=== PATIENT | male | born 1950 | race Caucasian/White ===

== ENCOUNTER 2017-08-17 11:57 | Day surgery (SDC) | payer MEDICARE ==
[~2017-08-17] VITALS: Ht 167.6 cm; Wt 77.6 kg
[2017-08-17] MEDS ORDERED: MELO7.5 PO (12:19)
[2017-08-17] MEDS ORDERED: PARO20 PO (12:20)
[2017-08-17] MEDS ORDERED: LOSA50 PO (12:23)
[2017-08-17] MEDS ORDERED: HYDCHL25 PO (12:24)
== END 2017-08-17 16:50 | disposition home or self-care (01) ==
LOC: ORSCSDS 11:57
PROVIDERS: Orthopaedic Surgery
PROC: 0RNK4ZZ Release Left Shoulder Joint, Percutaneous Endoscopic Approach (ICD-10-PCS; principal; 2017-08-17 13:00)
PROC: 0RBK4ZZ Excision of Left Shoulder Joint, Percutaneous Endoscopic Approach (ICD-10-PCS; principal; 2017-08-17 13:00)
PROC: 0LS24ZZ Reposition Left Shoulder Tendon, Percutaneous Endoscopic Approach (ICD-10-PCS; principal; 2017-08-17 13:00)
PROC: 0LQ24ZZ Repair Left Shoulder Tendon, Percutaneous Endoscopic Approach (ICD-10-PCS; principal; 2017-08-17 13:00)
DX: S46.111A Strain of muscle, fascia and tendon of long head of biceps, right arm, initial encounter (principal); M75.51 Bursitis of right shoulder; S46.011A Strain of muscle(s) and tendon(s) of the rotator cuff of right shoulder, initial encounter; I11.0 Hypertensive heart disease with heart failure; F32.9 Major depressive disorder, single episode, unspecified; Z79.899 Other long term (current) drug therapy
CPT/HCPCS: C1713; J0171; J0690; J1100; J1885; J2250; J2405; J2710; J7120

== ENCOUNTER 2018-09-26 07:39 | Day surgery (SDC) | payer MEDICARE ==
[~2018-09-26] VITALS: Ht 165.1 cm; Wt 76.2 kg
[~2018-09-26 07:39] MED LIST: HYDCHL25 PO; LOSA50 PO; MELO7.5 PO; PARO20 PO
--- NOTE | 2018-09-26 08:51 | NUR ---
History, Chart, Medications and Allergies reviewed before start of procedure. Patient confirms NPO status and agrees with scheduled surgery. Lungs clear T/O to Auscultation. Patient reports completing Chlorhexadine shower X5 prior to admission to hospital AND MUPIROCIN OINTEMENT TO BILATERAL NARES X5. Pre-Op teaching done. Pt verbalizes understanding.
--- NOTE | 2018-09-26 09:26 | NUR ---
TO BEDSIDE, TRACKER SYSTEM EXPLAINED AND OPPORTUINITY FOR QUESTIONS PROVIDED. PATIENT UP FOR UNMEASURED VOID.
[2018-09-26] MEDS ORDERED: AMLO5 PO (14:55)
--- NOTE | 2018-09-26 18:56 | NUR ---
SHIFT SUMMARY PAIN HAS BEEN MANAGED WITH PO PAIN MEDICATION POST-OP. PT IS TOLERATING PO WELL. HE WORKED WITH THERAPY THIS AFTERNOON AND IS A SBA. VSS. WILL MONITOR UNTIL REPORT TO ONCOMING RN.
[2018-09-27 05:30] LABS: BASOPHILS ABSOLUTE AUTO 0.02 K/mm3 (0.00-0.23); BASOPHILS PERCENT AUTO 0 % (0-2); EOSINOPHILS PERCENT AUTO 0 % (0-6); Hematocrit 37.8 % (37.0-53.0); Hemoglobin 12.9 g/dL (13.5-17.5); IMMATURE GRAN ABSOLUTE AUTO 0.09 K/mm3 (0.00-0.10); IMMATURE GRAN PERCENT AUTO 1 % (0-1); LYMPHOCYTES ABSOLUTE AUTO 0.84 K/mm3 (0.84-5.20); LYMPHOCYTES PERCENT AUTO 5 % (21-46); MONOCYTES ABSOLUTE AUTO 0.72 K/mm3 (0.16-1.47); MONOCYTES PERCENT AUTO 5 % (4-13); Mean Corpuscular HGB 32.7 pg (26.0-34.0); Mean Corpuscular HGB Conc 34.1 g/dL (31.5-36.5); Mean Corpuscular Volume 96 fL (80-100); Mean Platelet Volume 9.8 fL (9.1-12.4); NEUTROPHILS ABSOLUTE AUTO 14.18 K/mm3 (1.96-9.15); NEUTROPHILS PERCENT AUTO 90 % (41-73); Platelet Count 213 K/mm3 (150-400); RDW Coefficient Variation 11.8 % (11.7-14.2); RDW Standard Deviation 41.6 fL (35.1-46.3); Red Blood Cell Count 3.95 M/mm3 (4.30-5.90); White Blood Cell Count 15.85 K/mm3 (4.00-11.30)
[2018-09-27 06:22] LABS: Anion Gap 11 mmol/L (6-16); Blood Urea Nitrogen 18 mg/dL (8-24); Bun/Creatinine Ratio 21.3 (12.0-20.0); CO2, Blood 25 mmol/L (21-32); Calcium, Blood 8.7 mg/dL (8.5-10.1); Chloride, Blood 101 mmol/L (98-108); Creatinine, Blood 0.85 mg/dL (0.60-1.20); Glomerular Filtration Rate >60 (60-); Glucose, Blood 145 mg/dL (70-99); Magnesium, Blood 1.9 mg/dL (1.6-2.4); Potassium, Blood 3.6 mmol/L (3.5-5.5); Sodium, Blood 137 mmol/L (136-145)
[2018-09-27] MEDS ORDERED: ASPI325EC PO (10:54)
[2018-09-27] MEDS ORDERED: ACET500 PO (10:54)
[2018-09-27] MEDS ORDERED: OXYC5 PO (10:56)
--- NOTE | 2018-09-27 11:42 | NUR ---
DISCHARGE PT PROVIDED WITH WRITTEN AND VERBAL DISCHARGE INSTRUCTIONS, POOL HOSE, DRESSINGS AND PRESCRIPTIONS. PT AND HIS REPORTED UNDERSTANDING AFTER QUESTIONS WERE ANSWERED. PAIN MANAGED AT TIME OF DISCHARGE. PT NOTIFIED WHEN HE CAN TAKE HIS NEXT PAIN MEDICATION. VSS. PT ESCORTED OUT IN W/C BY KELLIE SHERMAN.
--- NOTE | 2018-09-27 16:51 | NUR ---
09/27/18 1651 Sarah Rogel VERIFICATIONS: EDIT CHART.
== END 2018-09-27 11:21 | disposition home or self-care (01) ==
LOC: ORSCMMR 07:39 → ORD 10:30 → ORSCMMR 10:30 → EDSTATUS 10:30 → SURS 13:47 → ORSCMMR 09-27 11:21
PROVIDERS: Orthopaedic Surgery
PROC: 0SRC0J9 Replacement of Right Knee Joint with Synthetic Substitute, Cemented, Open Approach (ICD-10-PCS; principal; 2018-09-26 10:30)
DX: M17.11 Unilateral primary osteoarthritis, right knee (principal); I10 Essential (primary) hypertension; Z79.899 Other long term (current) drug therapy
CPT/HCPCS: 36415; 73560-RT; 80048; 83735; 85025; 88300; 97110; 97116; 97162; C1713; C1776; J0171; J0690; J0735; J1100; J1885; J2250; J2370; J2405; J2765; J2795; J3010; J7120

== ENCOUNTER → 2021-01-09 | Outpatient (CLI) | payer MEDICARE ==
[~2021-01-09] MED LIST changes: +ACET500 PO; +AMLO5 PO; +ASPI325EC PO; +OXYC5 PO
== END | disposition home or self-care (01) ==
LOC: LAB SHORT 12:16 → LAB 12:16
DX: C44.519 Basal cell carcinoma of skin of other part of trunk (principal)
CPT/HCPCS: 88305

== ENCOUNTER → 2021-08-21 | Outpatient (CLI) | payer MEDICARE | END | disposition home or self-care (01) | LOC: LAB SHORT 14:13 | DX: L57.0 Actinic keratosis (principal) | CPT/HCPCS: 88305 ==

== ENCOUNTER 2022-02-16 06:12 | Day surgery (SDC) | payer MEDICARE ==
[~2022-02-16] VITALS: Ht 167.6 cm; Wt 79.2 kg
[~2022-02-16 06:12] MED LIST changes: +CELE100 PO
[2022-02-16] MEDS ORDERED: ACET500 (06:29)
--- NOTE | 2022-02-16 07:41 | NUR ---
Ambulatory in Day Surgery History, Chart, Medications and Allergies reviewed before start of procedure.Pre-Op teaching done. Pt verbalizes understanding.
--- NOTE | 2022-02-16 10:50 | NUR ---
PATIENT ARRIVED TO UNIT FROM PACU. VSS ON RA, LUNGS CLEAR. DERMATONES L2. A&O X4. AQUACEL DRESSING TO LEFT KNEE, C/D/I. POLAR PACK IN PLACE.
[2022-02-16] MEDS ORDERED: ACET500 PO (11:18)
[2022-02-16] MEDS ORDERED: ASPI81CH PO (11:18)
[2022-02-16] MEDS ORDERED: OXAYDO5 M4 PO (11:19)
--- NOTE | 2022-02-16 18:44 | NUR ---
SHIFT SUMMARY POD 0 L TKA, AQUACEL AND POLAR PACK TO LEFT KNEE. 1P ASSIST SBA WITH FWW & GB. WORKED WITH THERAPY THIS AFTERNOON AND DID VERY WELL. PAIN MANAGED PER EMAR, REPORTED TO BE 1/10 AT THIS TIME. PATIENT IS DOING VERY WELL, PLAN TO DC HOME TOMORROW. CALLS APPROPRIATELY, WILL REPORT TO ONCOMING RN.
[2022-02-17 04:39] LABS: BASOPHILS ABSOLUTE AUTO 0.01 K/mm3 (0.00-0.23); BASOPHILS PERCENT AUTO 0 % (0-2); EOSINOPHILS ABSOLUTE AUTO 0.01 K/mm3 (0.00-0.68); EOSINOPHILS PERCENT AUTO 0 % (0-6); Hematocrit 37.2 % (37.0-53.0); Hemoglobin 12.9 g/dL (13.5-17.5); IMMATURE GRAN ABSOLUTE AUTO 0.05 K/mm3 (0.00-0.10); IMMATURE GRAN PERCENT AUTO 0 % (0-1); LYMPHOCYTES ABSOLUTE AUTO 0.89 K/mm3 (0.84-5.20); LYMPHOCYTES PERCENT AUTO 6 % (21-46); MONOCYTES ABSOLUTE AUTO 0.71 K/mm3 (0.16-1.47); MONOCYTES PERCENT AUTO 5 % (4-13); Mean Corpuscular HGB 33.1 pg (26.0-34.0); Mean Corpuscular HGB Conc 34.7 g/dL (31.5-36.5); Mean Corpuscular Volume 95 fL (80-100); Mean Platelet Volume 9.9 fL (9.1-12.4); NEUTROPHILS ABSOLUTE AUTO 12.51 K/mm3 (1.96-9.15); NEUTROPHILS PERCENT AUTO 88 % (41-73); Platelet Count 216 K/mm3 (150-400); RDW Coefficient Variation 11.8 % (11.7-14.2); RDW Standard Deviation 40.4 fL (35.1-46.3); White Blood Cell Count 14.18 K/mm3 (4.00-11.30)
--- NOTE | 2022-02-17 04:48 | NUR ---
SHIFT SUMMARY A/O X4. POD1 L TKA- AQUACEL, NEFTALI WRAP, AND POLAR PACK IN PLACE. PAIN MANAGED WELL WITH SCHEDULED TYLENOL AND TORADOL. PT HAS HAD MANY EPISODES OF EMESIS THIS SHIFT, AND REPORTS HAVING SEVERE ACID REFLUX/ HEART BURN FEELING- TREATED PER EMAR. VOIDING WELL. HAS AMBULATED X2 YESTERDAY BUT REMAINED BEDREST THROUGHOUT THE NIGHT DUE TO VOMITING. WILL CONTINUE TO MONITOR AND REPORT TO ONCOMING RN.
[2022-02-17 05:00] LABS: Calcium, Blood 8.7 mg/dL (8.5-10.1); Creatinine, Blood 0.95 mg/dL (0.60-1.20); Magnesium, Blood 2.3 mg/dL (1.6-2.4); Potassium, Blood 3.7 mmol/L (3.5-5.5)
--- NOTE | 2022-02-17 09:24 | NUR ---
02/17/22 0924 Sarah Rogel VERIFICATIONS: EDIT CHART.
--- NOTE | 2022-02-17 11:41 | NUR ---
DISCHARGE SUMMARY PT POD #1 FOR L TOTAL KNEE. PT VERY NAUSEATED AND HAD MANY EPISODES OF VOMITING DURING THE NIGHT. PT'S NAUSEA HAS RESOLVED THIS MORNING AND HE TOLERATED BREAKFAST WELL. NO C/O PAIN THIS SHIFT. REQUESTING NAUSEA MEDICATION IN CASE NAUSEA RETURNS. PT WORKED WITH PHYSICAL THERAPY AND DID WELL. AQUACEL DRESSING CHANGED THIS AM DUE TO SHADOWING ALMOST TOUCHING BOTH SIDES OF BANDAGE. DRESSING REMAINS CDI. PT DC'D HOME WITH .
== END 2022-02-17 11:30 | disposition home or self-care (01) ==
LOC: ORSCMMR 06:12 → ORD 07:30 → ORSCMMR 07:30 → SURS 10:53 → ORSCMMR 02-17 11:30
PROVIDERS: Orthopaedic Surgery
DX: M17.12 Unilateral primary osteoarthritis, left knee (principal); I10 Essential (primary) hypertension; Z96.651 Presence of right artificial knee joint; K21.9 Gastro-esophageal reflux disease without esophagitis; Z79.899 Other long term (current) drug therapy
CPT/HCPCS: 27447; S2900; 36415; 73560-LT; 80048; 83735; 85025; 97110; 97116; 97162; A9270; C1776; J0171; J0690; J0735; J1100; J1885; J2250; J2370; J2405; J2550; J2704; J2795; J3010; J7120

== ENCOUNTER 2022-09-02 02:41 | Emergency (ER) | payer MEDICARE ==
[~2022-09-02] VITALS: Ht 167.6 cm; Wt 71.7 kg
[~2022-09-02 02:41] MED LIST changes: +ACET500; +ASPI81CH PO; +OXAYDO5 M4 PO
== END 2022-09-02 05:20 | disposition home or self-care (01) ==
LOC: ER 02:41
DX: K94.29 Other complications of gastrostomy (principal); I10 Essential (primary) hypertension; Z79.899 Other long term (current) drug therapy; Z79.82 Long term (current) use of aspirin; Z86.73 Personal history of transient ischemic attack (TIA), and cerebral infarction without residual deficits
CPT/HCPCS: 74018

== ENCOUNTER 2022-10-04 17:55 | Emergency (ER) | payer MEDICARE ==
[~2022-10-04] VITALS: Ht 167.6 cm; Wt 70.3 kg
[2022-10-04] MEDS ORDERED: ATOR40TA PO (19:43)
[2022-10-04] MEDS ORDERED: CLOP75 PO (19:44)
== END 2022-10-04 22:03 | disposition home or self-care (01) ==
LOC: ER 17:55
DX: S00.01XA Abrasion of scalp, initial encounter (principal); I10 Essential (primary) hypertension; Z79.899 Other long term (current) drug therapy; Z79.82 Long term (current) use of aspirin; Z86.73 Personal history of transient ischemic attack (TIA), and cerebral infarction without residual deficits
CPT/HCPCS: 70450; A9270

== ENCOUNTER → 2024-02-04 | Outpatient (CLI) | payer MEDICARE ==
[~2024-02-04] MED LIST changes: +ATOR40TA PO; +CLOP75 PO
[2024-02-04 10:50] LABS: Hematocrit 43.1 % (37.0-53.0); Hemoglobin 14.9 g/dL (13.5-17.5); Mean Corpuscular HGB 31.8 pg (26.0-34.0); Mean Corpuscular HGB Conc 34.6 g/dL (31.5-36.5); Mean Corpuscular Volume 92 fL (80-100); Mean Platelet Volume 9.4 fL (9.1-12.4); Platelet Count 238 K/mm3 (150-400); RDW Coefficient Variation 12.1 % (11.7-14.2); RDW Standard Deviation 40.3 fL (35.1-46.3); Red Blood Cell Count 4.69 M/mm3 (4.30-5.90); White Blood Cell Count 6.06 K/mm3 (4.00-11.30)
[2024-02-04 11:20] LABS: Alanine Aminotransfer (ALT/SGP 26 U/L (12-78); Albumin, Blood 3.6 g/dL (3.4-5.0); Alk Phos 73 U/L (40-126); Anion Gap 11 mmol/L (6-16); Aspartate Aminotrans (AST/SGOT 14 U/L (12-37); Bilirubin, Total 0.5 mg/dL (0.1-1.0); Blood Urea Nitrogen 12 mg/dL (8-24); CO2, Blood 29 mmol/L (21-32); Calcium, Blood 9.3 mg/dL (8.5-10.1); Chloride, Blood 105 mmol/L (98-108); Cholesterol 179 mg/dL (50-200); Creatinine, Blood 0.92 mg/dL (0.60-1.20); Globulin, Blood 3.6 g/dL (2.2-4.0); Glomerular Filtration Rate 87 (60-); Glucose, Blood 96 mg/dL (70-99); HDL Cholesterol 45 mg/dL (>39); LDL/HDL RATIO 2.3; Low Density Lipoprotein Chol 102 mg/dL (<110); Potassium, Blood 4.2 mmol/L (3.5-5.5); Sodium, Blood 141 mmol/L (136-145); Total Protein, Blood 7.2 g/dL (6.4-8.2); Triglycerides 158 mg/dL (30-160); Very Low Density Lipoprot Chol 31 mg/dL (6-32)
== END ==
LOC: LAB 10:30 → LAB SHORT 10:30
PROVIDERS: Internal Medicine
DX: E78.2 Mixed hyperlipidemia (principal); I10 Essential (primary) hypertension
CPT/HCPCS: 36415; 80053; 80061; 85027

== ENCOUNTER → 2024-02-10 | Outpatient (CLI) | payer MEDICARE | END | disposition home or self-care (01) | LOC: LAB SHORT 13:42 → LAB 13:42 | DX: R53.82 Chronic fatigue, unspecified (principal) | CPT/HCPCS: 84443 ==

== ENCOUNTER → 2024-10-26 | Outpatient (CLI) | payer MEDICARE ==
[2024-10-26 19:08] LABS: BASOPHILS ABSOLUTE AUTO 0.06 K/mm3 (0.00-0.23); BASOPHILS PERCENT AUTO 1 % (0-2); EOSINOPHILS ABSOLUTE AUTO 0.37 K/mm3 (0.00-0.68); EOSINOPHILS PERCENT AUTO 6 % (0-6); Hematocrit 42.7 % (37.0-53.0); Hemoglobin 14.7 g/dL (13.5-17.5); IMMATURE GRAN ABSOLUTE AUTO 0.01 K/mm3 (0.00-0.10); IMMATURE GRAN PERCENT AUTO 0 % (0-1); LYMPHOCYTES ABSOLUTE AUTO 1.19 K/mm3 (0.84-5.20); LYMPHOCYTES PERCENT AUTO 19 % (21-46); MONOCYTES ABSOLUTE AUTO 0.41 K/mm3 (0.16-1.47); MONOCYTES PERCENT AUTO 7 % (4-13); Mean Corpuscular HGB 32.1 pg (26.0-34.0); Mean Corpuscular HGB Conc 34.4 g/dL (31.5-36.5); Mean Corpuscular Volume 93 fL (80-100); Mean Platelet Volume 10.9 fL (9.1-12.4); NEUTROPHILS ABSOLUTE AUTO 4.08 K/mm3 (1.96-9.15); NEUTROPHILS PERCENT AUTO 67 % (41-73); Platelet Count 266 K/mm3 (150-400); RDW Coefficient Variation 12.3 % (11.7-14.2); RDW Standard Deviation 41.8 fL (35.1-46.3); Red Blood Cell Count 4.58 M/mm3 (4.30-5.90); White Blood Cell Count 6.12 K/mm3 (4.00-11.30)
[2024-10-26 19:19] LABS: Free Thyroxine 0.86 ng/dL (0.70-1.60); Magnesium, Blood 2.1 mg/dL (1.6-2.4)
[2024-10-26 19:22] LABS: Albumin, Blood 3.6 g/dL (3.4-5.0); Anion Gap 10 mmol/L (3-11); Blood Urea Nitrogen 13 mg/dL (8-24); Bun/Creatinine Ratio 14.2 (12.0-20.0); CO2, Blood 30 mmol/L (21-32); Calcium, Blood 8.8 mg/dL (8.5-10.1); Chloride, Blood 104 mmol/L (98-108); Creatinine, Blood 0.92 mg/dL (0.60-1.20); Glomerular Filtration Rate 87 (60-); Glucose, Blood 118 mg/dL (70-99); Phosphorus, Blood 2.5 mg/dL (2.5-4.9); Potassium, Blood 4.1 mmol/L (3.5-5.5); Sodium, Blood 140 mmol/L (136-145)
== END ==
LOC: LAB SHORT 17:49 → LAB 17:49
PROVIDERS: Internal Medicine
DX: I49.49 Other premature depolarization (principal); R53.83 Other fatigue
CPT/HCPCS: 80069; 83735; 84439; 84443; 85025

== ENCOUNTER → 2025-08-06 | Outpatient (CLI) | payer MEDICARE ==
[2025-08-06 15:21] LABS: BASOPHILS ABSOLUTE AUTO 0.07 K/mm3 (0.00-0.23); BASOPHILS PERCENT AUTO 1 % (0-2); EOSINOPHILS ABSOLUTE AUTO 0.34 K/mm3 (0.00-0.68); EOSINOPHILS PERCENT AUTO 5 % (0-6); Hematocrit 44.6 % (37.0-53.0); Hemoglobin 15.1 g/dL (13.5-17.5); IMMATURE GRAN ABSOLUTE AUTO 0.02 K/mm3 (0.00-0.10); IMMATURE GRAN PERCENT AUTO 0 % (0-1); LYMPHOCYTES ABSOLUTE AUTO 1.52 K/mm3 (0.84-5.20); LYMPHOCYTES PERCENT AUTO 23 % (21-46); MONOCYTES ABSOLUTE AUTO 0.40 K/mm3 (0.16-1.47); MONOCYTES PERCENT AUTO 6 % (4-13); Mean Corpuscular HGB Conc 33.9 g/dL (31.5-36.5); Mean Corpuscular Volume 94 fL (80-100); NEUTROPHILS ABSOLUTE AUTO 4.40 K/mm3 (1.96-9.15); NEUTROPHILS PERCENT AUTO 65 % (41-73); NRBC ABSOLUTE 0.00 K/mm3 (0.00-0.02); NRBC Auto 0.0 /100 WBC (0.0-0.2); Platelet Count 297 K/mm3 (150-400); RDW Coefficient Variation 11.9 % (11.7-14.2); RDW Standard Deviation 41.1 fL (35.1-46.3)
[2025-08-06 15:42] LABS: Alanine Aminotransfer (ALT/SGP 30 U/L (12-78); Albumin, Blood 3.4 g/dL (3.4-5.0); Albumin/Globulin Ratio 0.9 (0.8-1.8); Anion Gap 9 mmol/L (3-11); Aspartate Aminotrans (AST/SGOT 19 U/L (12-37); Bilirubin, Total 0.6 mg/dL (0.1-1.0); Blood Urea Nitrogen 11 mg/dL (8-24); CHOL/HDL RATIO 4.8; CO2, Blood 25 mmol/L (21-32); Calcium, Blood 9.0 mg/dL (8.5-10.1); Chloride, Blood 108 mmol/L (98-108); Cholesterol 181 mg/dL (50-200); Creatinine, Blood 0.88 mg/dL (0.60-1.20); Globulin, Blood 3.6 g/dL (2.2-4.0); Glucose, Blood 108 mg/dL (70-99); HDL Cholesterol 38 mg/dL (>39); LDL/HDL RATIO 2.8; Low Density Lipoprotein Chol 107 mg/dL (0-110); Potassium, Blood 3.9 mmol/L (3.5-5.5); Sodium, Blood 138 mmol/L (136-145); Thyroid Stimulating Hormone 1.990 uIU/mL (0.360-4.800); Total Protein, Blood 7.0 g/dL (6.4-8.2); Triglycerides 178 mg/dL (30-160); Very Low Density Lipoprot Chol 35 mg/dL (6-32)
== END | disposition home or self-care (01) ==
LOC: LAB 09:44 → LAB SHORT 09:44
PROVIDERS: Internal Medicine
DX: E78.2 Mixed hyperlipidemia (principal); R53.83 Other fatigue
CPT/HCPCS: 80053; 80061; 84443; 85025